=== PATIENT | female | born 1980 | race Caucasian/White ===

== ENCOUNTER 2019-10-01 09:43 | Emergency (ER) | payer SELFPAY ==
[~2019-10-01] VITALS: Ht 180.3 cm; Wt 111.2 kg
[2019-10-01 09:54] VITALS: BP 155/97
== END 2019-10-01 10:24 | disposition home or self-care (01) ==
LOC: ED 10:15
DX: Z00.00 Encounter for general adult medical examination without abnormal findings (principal); F17.210 Nicotine dependence, cigarettes, uncomplicated
CPT/HCPCS: 99281